=== PATIENT | female | born 1950 | race Two or more races ===

== ENCOUNTER 2024-06-25 14:58 | Emergency (ER) | payer OTHER ==
[~2024-06-25] VITALS: Ht 157.5 cm; Wt 73.5 kg
[2024-06-25] MEDS ORDERED: AMLODIPINE (15:37)
[2024-06-25] MEDS ORDERED: LEVOTHYROXINE50 MC1 PO (15:37)
[2024-06-25] MEDS ORDERED: ORPHENADRINE CITRATE 30 MG/ML AMPUL ONE (16:22)
[2024-06-25] MEDS ORDERED: ACETAMINOPHEN 500 MG GEL..CAP PO ONE ×2 (16:22→16:30)
[2024-06-25] MEDS ORDERED: ORPHENADRINE CITRATE 30 MG/ML AMPUL IM ONE (16:30)
== END 2024-06-25 18:39 | disposition home or self-care (01) ==
LOC: ER 14:58
DX: M54.2 Cervicalgia (principal); I10 Essential (primary) hypertension; E03.8 Other specified hypothyroidism; Z88.2 Allergy status to sulfonamides
CPT/HCPCS: 72040; 96372; 99283; J2360